=== PATIENT | male | born 1985 | race African-American/Black ===

== ENCOUNTER 2023-02-05 10:45 | Emergency (ER) | payer MEDICAID ==
[~2023-02-05] VITALS: Ht 177.8 cm; Wt 75.0 kg
[2023-02-05 10:50] VITALS: TEMP 98.6; O2SAT 100
[2023-02-05 11:15] VITALS: BP 126/82; PULSE 80; RESP 18
[2023-02-05] MEDS ORDERED: ACETAMINOPHEN WITH CODEINE 300/30MG TABLET PO ONE (11:15)
[2023-02-05] MEDS ORDERED: IBUP-2028 PO (11:50)
== END 2023-02-05 12:20 | disposition home or self-care (01) ==
LOC: ER 10:57
DX: S40.022A Contusion of left upper arm, initial encounter (principal); W22.8XXA Striking against or struck by other objects, initial encounter; Y93.89 Activity, other specified; Y92.89 Other specified places as the place of occurrence of the external cause; Y99.8 Other external cause status
CPT/HCPCS: 73090; 73100; 73120; 99284